=== PATIENT | female | born 1975 | race Hispanic/Latino ===

== ENCOUNTER → 2019-12-29 | Outpatient (CLI) | payer OTHER, MEDICARE | END | disposition home or self-care (01) | LOC: RAH 13:38 | PROVIDERS: ATTEND Internal Medicine | DX: Z12.31 Encounter for screening mammogram for malignant neoplasm of breast (principal); N64.89 Other specified disorders of breast | CPT/HCPCS: 77067 ==

== ENCOUNTER → 2022-10-20 | Outpatient (CLI) | payer OTHER, MEDICARE | END | disposition home or self-care (01) | LOC: RAH 12:59 | PROVIDERS: ATTEND Internal Medicine | DX: Z12.31 Encounter for screening mammogram for malignant neoplasm of breast (principal) | CPT/HCPCS: 77067 ==

== ENCOUNTER → 2023-10-25 | Outpatient (CLI) | payer OTHER, MEDICARE | END | disposition home or self-care (01) | LOC: RAH 12:47 | PROVIDERS: ATTEND Clinical Nurse Specialist Family Health | DX: R07.81 Pleurodynia (principal); M54.9 Dorsalgia, unspecified; J06.9 Acute upper respiratory infection, unspecified | CPT/HCPCS: 71046; 71110 ==

== ENCOUNTER 2023-10-31 13:46 | Emergency (ER) | payer OTHER, MEDICARE ==
[~2023-10-31] VITALS: Ht 165.1 cm; Wt 59.0 kg
[2023-10-31] MEDS: 0.9%NACL 1000ML 1,000 ML IV ONE (14:07)
[2023-10-31] MEDS: LEVETIRACETAM 500 MG/5 ML SD VIAL IV SCH ×2 (14:07→20:02)
[2023-10-31] MEDS: LORazepam 2 MG/ML 1 ML VIAL IVP ONE (14:07)
[2023-10-31 14:15] LABS: BASOPHILS # (AUTO) 0.03 K/uL (0.00-0.20); BASOPHILS % (AUTO) 0.3 % (0.0-5.0); EOSINOPHILS # (AUTO) 0.03 K/uL (0.00-0.70); EOSINOPHILS % (AUTO) 0.3 % (0.0-8.0); HEMATOCRIT 35.5 % (36-48); IMMATURE GRANULOCYTE ABSOLUTE 0.04 K/uL (0-1); LYMPHOCYTES # (AUTO) 0.5 K/uL (1.0-4.8); LYMPHOCYTES % (AUTO) 4.9 % (21.0-51.0); MEAN CORPUSCULAR HEMOGLOBIN 24.4 pg (27.0-33.0); MEAN CORPUSCULAR HGB CONC 32.1 g/dL (32.0-36.0); MONOCYTES # (AUTO) 0.5 K/uL (0.1-1.0); NEUTROPHILS # (AUTO) 8.8 K/uL (1.8-7.7); NEUTROPHILS % (AUTO) 89.1 % (40.0-77.0); PLATELET COUNT (AUTO) 321 K/uL (130-400); RED BLOOD CELL COUNT(AUTO) 4.67 MIL/uL (4.00-5.50); RED CELL DISTRIBUTION WIDTH 14.7 % (11.0-15.5); WHITE BLOOD COUNT (AUTO) 9.9 K/uL (4.8-10.8)
[2023-10-31 14:39] LABS: ALBUMIN 3.7 g/dL (3.5-5.0); BILIRUBIN,TOTAL 1.8 mg/dL (0.2-1.0); CREATININE 0.9 mg/dL (0.5-1.0); TOTAL PROTEIN, SERUM 8.3 g/dL (6.0-8.3)
[2023-10-31 14:40] LABS: APPEARANCE,URINE CLEAR (CLEAR); BILIRUBIN,URINE NEGATIVE (NEGATIVE); COLOR,URINE YELLOW (YELLOW); GLUCOSE, URINE (UA) NEGATIVE (NEGATIVE); KETONES,URINE NEGATIVE (NEGATIVE); LEUKOCYTE ESTERASE ,URINE NEGATIVE Leu/uL (NEGATIVE); NITRATE,URINE NEGATIVE (NEGATIVE); PH,URINE 6.5 (5.0-8.0); PROTEIN,URINE 20 mg/dL (NEGATIVE)
[2023-10-31 14:42] LABS: ADD UA MICROSCOPIC YES
[2023-10-31 14:43] LABS: HCG,QUALITATIVE URINE NEGATIVE (NEGATIVE)
[2023-10-31 14:43] LABS: POTASSIUM 2.9 mmol/L (3.5-5.1)
[2023-10-31 14:44] LABS: BACTERIA,URINE RARE /HPF (None Seen); MUCUS,URINE RARE LPF (None Seen); OTHER CASTS, URINE 1 /LPF (None Seen); SQUAMOUS EPITHELIAL CELL,UR RARE /HPF (0-2)
[2023-10-31 14:48] LABS: AMPHET/METH SCREEN,URINE NEGATIVE (NEGATIVE); BARBITURATE SCREEN, URINE NEGATIVE (NEGATIVE); BENZODIAZEPINES SCREEN,URINE NEGATIVE (NEGATIVE); CANNABINOID SCREEN,URINE NEGATIVE (NEGATIVE); COCAINE SCREEN,URINE NEGATIVE (NEGATIVE); OPIATE SCREEN,URINE NEGATIVE (NEGATIVE); PHENCYCLIDINE SCREEN,URINE NEGATIVE (NEGATIVE)
[2023-10-31] MEDS: CEFTRIAXONE 2GM VIAL IVPB ONE (15:14)
[2023-10-31] MEDS: POTASSIUM CHLORIDE 10MEQ/100ML 100 ML IV STA (20:03)
[2023-10-31 21:00] VITALS: TEMP 100.4
[2023-10-31] MEDS: acetaMINOPHEN 325 MG TAB PO ONE (21:00)
[2023-10-31] MEDS: hydrALAZine 20MG/ML VIAL IV ONE (21:15)
[2023-10-31 21:34] VITALS: BP 123/70; PULSE 69; RESP 18; O2SAT 100
== END 2023-10-31 22:08 | disposition short-term general hospital (02) ==
LOC: EDH 13:46
DX: A41.9 Sepsis, unspecified organism (principal); R56.9 Unspecified convulsions; K80.50 Calculus of bile duct without cholangitis or cholecystitis without obstruction; F88 Other disorders of psychological development; E87.6 Hypokalemia; D64.89 Other specified anemias; R74.01 Elevation of levels of liver transaminase levels; I10 Essential (primary) hypertension; Z98.890 Other specified postprocedural states
CPT/HCPCS: 99291; 96365; 70450; 76705; 96375; 96367; 96366; 84484; 80053; 80305; 85025; 87040; 83605 ×2; 81001; 81025; 36415; 96368; 93005; J1953 ×2; J0696; J0360; J2060; J3480

== ENCOUNTER 2024-02-29 09:18 | Emergency (ER) | payer OTHER, MEDICARE ==
[~2024-02-29] VITALS: Ht 170.2 cm; Wt 59.0 kg
--- NOTE | 2024-02-29 10:13 | ERN ---
ED Note History of Present Illness Stated Complaint: VISION PROBLEM Chief Complaint: Vision Problem Time Seen by MD: 09:49 Dictation: This 48-year-old female with a history of hypertension presents in the emergency department with monocular left eye visual loss that began two months ago. She was apparently seen at [facility] January 31 at which time she was referred to an emergency department for CT or MRI. She did not follow those instructions until today when she was again seen and told to come to the emergency department for CT or MRI. She has very low vision in the right eye but there has been no acute change in right eye vision She was also referred to some sort of secondary evaluation and [facility] but she did not go there because she does not know her way around [facility]. She has no new complaints in the last two months. She has not seen her PCP recently and does not remember her PCP's name. There were no other neurologic complaints. She has no light perception in the left eye and the paperwork from January 16 at the eye doctor suggest left retinal detachment. She does not smoke drink use recreational drugs. She lives at home with family Allergies: Coded Allergies: No Known Drug Allergies (Unverified Allergy, Unknown, 10/31/23) Past Medical History Past Medical History: Hypertension Additional Past Medical Hx: DEVELOPMENTAL DELAY PER MOTHER Surgical History: None History: Not Applicable : 2 Para: 2 Aborts: 0 Review of System Dictation All pertinent systems reviewed, negative except as documented in the HPI The ROS is obtained from patient GENERAL/CONSTITUTIONAL: Negative except as documented in HPI. ENT: Negative except as documented in HPI. CARDIOVASCULAR: Negative except as documented in HPI. RESPIRATORY: Negative except as documented in HPI. GASTROINTESTINAL: Negative except as documented in HPI. GENITOURINARY: Negative except as documented in HPI. MUSCULOSKELETAL: Negative except as documented in HPI. SKIN: Negative except as documented in HPI. NEUROLOGIC: Negative except as documented in HPI. Initial Vital Sign VS Vital Signs Date Time Temp Pulse Resp B/P (MAP) Pulse Ox O2 Delivery O2 Flow Rate FiO2 02/29/24 09:21 98.4 55 18 204/108 100 Room Air 0 Physical Exam Dictation VITAL SIGNS: note is made of triage vital signs CONSTITUTIONAL: This is a comfortable patient who is awake, alert, and appropriately interactive. HEAD: Normocephalic, Atraumatic. EYES: Periorbital areas with no swelling, redness, or edema. Lids and lashes are normal. Conjunctival injection is absent. Sclera anicteric. Pupils unequal, left is unreactive to light N right reacts normally. Extraocular movements are intact in the left eye tracks the right. There was no obvious right-sided visual field cut. ENT: No nasal discharge noted. Posterior pharynx is without exudate, redness, swelling, masses, or evidence of obstruction. Uvula midline. Mucous membranes moist. NECK: Trachea midline, no masses palpated, and no cervical lymphadenopathy. No swelling. Supple, full range of motion without nuchal rigidity. No vertebral point tenderness. No meningismus. CHEST/AXILLA: Normal chest wall appearance and motion. No tenderness. No crepitus. CV: Normal rate, regular rhythm. No murmur. No edema. RESPIRATORY:Respiratory rate is normal. Bilateral equal breath sounds with good airflow. Normal breath sounds are noted. No rales, rhonchi or wheezes noted. No increased work of breathing, no retractions. ABDOMEN: Inspection normal. No distention is appreciated. Bowel sounds are norm al. No mass or organomegaly is appreciated. There is no tenderness. No rebound. No rigidity. No voluntary or involuntary guarding. BACK: Inspection is normal. No midline tenderness is appreciated. The patient appears comfortable when moving. : No CVA tenderness or bladder tenderness. SKIN: Warm, dry, with normal turgor. Capillary refill less than 3 seconds. Normal color.No rash. No cellulitis or abscess. No evidence of acute injury. MS/Extremity: There is no calf tenderness. Baseline range of motion is noted in all 4 extremities. There are no deformities. NEURO: Awake and alert, lucid. Facies symmetric and speech mildly dysarthric. Motor strength 5/5 in all extremities. Sensory grossly intact. PSYCH: Patient is appropriately attentive and cooperative without evidence of hallucination. Results (Laboratory/Radiology) X-RAY Comment: Institution : [facility] Accession No. : [id number] [place] Patient : RICK BALLARD Creator : Dictator : Assistant Front Office Manager : Guide Escort : PAULINE GOLD Approver2 : Study : BRAIN AND ORBITS [facility] Study Date : 02/29/2024 11:51:05 Report Date : [facility] [address] [place], [place] [id number] IMAGING REPORT Signed PATIENT: ELIO CABRERA MR#: [id number] : 1975 SEX: F AGE: 48 LOCATION: [facility] ORDER 1102 STATUS: [facility] REPORT#: [id number] SERVICE 1059 REASON: visual loss ORDERING PHYSICIAN: JORI REYES MD PROCEDURE: BRAINORBWW - MR BRAIN AND ORBITS [facility]WO Exam Type: MR BRAIN AND ORBITS [facility] Clinical Information: visual loss Comparison: CT head October 31, 2023 Technique: T1 weighed sagittal, T1-weighted axial, T2-weighted axial, diffusion, apparent diffusion, exponential diffusion weighted axial, T2-weighted FLAIR sagittal, coronal and axial images of the brain and orbits. Findings: The examination demonstrates asymmetry in the size of the occipital horns of both lateral ventricles, larger on the right side. This is chronic and stable since at least the examination of October 31, 2023. The examination is otherwise unremarkable. Cruz-white matter junction is preserved. No intra or extra axial lesions or fluid collections are seen. There are no infarcts. There are no hemorrhages. Signal intensity is normal throughout the periventricular white matter locations. The orbital contents and structures of the posterior fossa are intact. The sella and its contents and the structures of the skull base are intact as well. After contrast administration, there is no abnormal enhancement. Impression: Chronic ventricular size asymmetry, probably not related to patient's current symptoms. No abnormal enhancement. No acute pathology. DICTATED BY: PAULINE GOLD MD DATE: 02/29/24 1234 ELECTRONICALLY SIGNED BY: PAULINE GOLD MD DATE: 02/29/24 1240 Institution : [facility] Accession No. : [id number] Patient : RICK BALLARD Creator : Dictator : Assistant Front Office Manager : Guide Escort : PAULINE GOLD Approver2 : Study : MR ANGIO HEAD, WO CON Study Date : 02/29/2024 11:42:50 Report Date : [facility] [address] [place] [id number] IMAGING REPORT Signed PATIENT: ELIO CABRERA MR#: [id number] : 1975 SEX: F AGE: 48 LOCATION: [facility] ORDER 1102 STATUS: REG ER REPORT#: [id number] SERVICE 1059 REASON: visual loss ORDERING PHYSICIAN: JORI REYES MD PROCEDURE: MRA HEAD - MR ANGIO HEAD, WO CON MRA [place] Examination is done with 3-D alqr-wc-hwtwhw technique without contrast and a tiny ankle surface rendering three-dimensional reconstructions. History:visual loss Comparison: none The structures of the [place] are patent. Both anterior cerebral arteries are patent beyond anterior communicating artery with a patent anterior communicating artery. There is no aneurysm. There is no arteriovenous malformation. There is no tumor blush. Impression: Normal exam. DICTATED BY: PAULINE GOLD MD DATE: 02/29/24 1239 ELECTRONICALLY SIGNED BY: PAULINE GOLD MD DATE: 02/29/24 1241 ED Course ED Course Orders Procedure Category Date Status Time Mr Angio Head, Wo Con MRI 02/29/24 Resulted 10:59 Mr Brain And Orbits MRI 02/29/24 Resulted WWO 10:59 Vital Signs Date Time Temp Pulse Resp B/P (MAP) Pulse Ox O2 Delivery O2 Flow Rate FiO2 02/29/24 09:21 98.4 55 18 204/108 100 Room Air 0 Medical Decision Making MDM INITIAL IMPRESSION Initial history and physical concerning for retinal detachment per ophthalmology notes, it is unclear as the patient has a diagnosis and has had a two month delay what urgent studies would be valuable to the foreign agent's. I will make a call to the foreign agent and try and establish the reason for the emergent study and what exactly they are seeking to rule out Contributing medical problems: The patient has no symptoms suggestive of stroke either at the time of onset or since onset two months ago I have reviewed the triage nursing notes and vital signs. The patient is afebrile with acceptable oxygen saturation, heart rate and blood pressure. Initial plan: Ophthalmology consultation At 10:49 a.m. I spoke to Dr. Crawley, on-call for [facility] who reviewed the patient's chart and requested MRI of the orbits and brain and MRA due to bilateral severe low vision DATA REVIEW Sue diagnostic results: Patient has been imaged in the past. There were no acute changes in brain imaging and no acute findings in the MRA There was no indication for emergency intervention on the basis of these films. The patient was provided with the results and advised to follow up with her foreign agent for consideration of retinal repair which is planned for the left eye ED COURSE Interventions: None Reassessment: Patient has been stable DISPOSITION Final diagnostic impression: Bilateral low vision, retinal detachment of the left eye, chronic I discussed my findings, clinical impression and treatment recommendations with the patient. I have reviewed the social factors contributing to the patient's presentation and disposition planning. My final plan for disposition was made based upon clinical findings, response to treatment and discussion with the patient regarding management options. The foreign agent Hospitalization is not indicated due to low risk of short term progression, complication, morbidity or mortality related to the current diagnosis At the time of discharge, the vital signs are within acceptable limits. Repeat examination: No significant new changes. The discharge treatment plan includes recommendation to take the results of the MRI and follow up with the foreign agent, corrina Questions were invited and answered in layman's terms. I have emphasized my follow-up recommendations and reviewed ED return precautions. I have answered any questions in layman's terms. The patient understands that they will have to arrange for out-patient follow-up for recheck of today's condition. The patient is stable and appropriate for discharge from the ED. This dictation was prepared using [employer] voice recognition software. Occasional voice recognition errors may occur. When identified, these errors have been corrected. While every attempt is made to correct errors during dictation, errors may still exist. DX & DISP Disposition: Discharge Decision to Admit Date: Feb 29, 2024 Decision to Admit Time: 13:00 Departure Impression: Primary Impression: Retinal detachment left eye Additional Impression: Chronic ventricular size asymmetry Condition: Stable Additional Instructions: Take the results from today to your foreign agent and follow all of their instructions Continue your usual home medication Referrals: MONICA GUTIERREZ MD (PCP) Time of Disposition: 13:04 JORI REYES MD Feb 29, 2024 10:13
--- NOTE | 2024-02-29 11:39 | NUR ---
MRI AT THIS TIME
--- NOTE | 2024-02-29 12:40 | HMCIMG ---
Exam Type: MR [facility] Clinical Information: visual loss Comparison: CT head October 31, 2023 Technique: T1 weighed sagittal, T1-weighted axial, T2-weighted axial, diffusion, apparent diffusion, exponential diffusion weighted axial, T2-weighted FLAIR sagittal, coronal and axial images of the brain and orbits. Findings: The examination demonstrates asymmetry in the size of the occipital horns of both lateral ventricles, larger on the right side. This is chronic and stable since at least the examination of October 31, 2023. The examination is otherwise unremarkable. Cruz-white matter junction is preserved. No intra or extra axial lesions or fluid collections are seen. There are no infarcts. There are no hemorrhages. Signal intensity is normal throughout the periventricular white matter locations. The orbital contents and structures of the posterior fossa are intact. The sella and its contents and the structures of the skull base are intact as well. After contrast administration, there is no abnormal enhancement. Impression: Chronic ventricular size asymmetry, probably not related to patient's current symptoms. No abnormal enhancement. No acute pathology.
--- NOTE | 2024-02-29 12:41 | HMCIMG ---
MRA [place] Examination is done with 3-D muew-ra-ohkmll technique without contrast and a tiny ankle surface rendering three-dimensional reconstructions. History:visual loss Comparison: none The structures of the [place] are patent. Both anterior cerebral arteries are patent beyond anterior communicating artery with a patent anterior communicating artery. There is no aneurysm. There is no arteriovenous malformation. There is no tumor blush. Impression: Normal exam.
[2024-02-29 13:30] VITALS: BP 168/72; PULSE 58; RESP 18; TEMP 98.4; O2SAT 100
[2024-02-29] MEDS ORDERED: GADOTERATE MEGLUMINE 10 MMOL/20 ML VIAL IV ONE (15:02)
== END 2024-02-29 13:37 | disposition home or self-care (01) ==
LOC: EDH 09:18
DX: H33.22 Serous retinal detachment, left eye (principal); I10 Essential (primary) hypertension; H53.8 Other visual disturbances
CPT/HCPCS: 99285; 70553; 70544; 70543; A9575